=== PATIENT | female | born 1995 | race Caucasian/White ===

== ENCOUNTER 2024-09-05 20:29 | Emergency (ER) | payer OTHER, SELFPAY ==
[2024-09-05 20:46] VITALS: BP 116/66
--- NOTE | 2024-09-05 20:47 | ED.GENMED ---
ED Provider Triage
<Husam Conn PA-C - Last Filed: 09/05/24 20:47>
-
Patient seen by provider in Triage?: Seen in Triage
Attestation: A medical screening examination has been initiated by a qualified medical provider. Based on the assessment performed at this time, it has been determined that an emergent medical condition may exist and the patient has been informed
that further medical evaluation and possible additional diagnostic testing may be needed.
HPI: 28-year-old female with persistent nausea vomiting and diarrhea with sudden onset around 2 PM. No sick contacts or recent travel. Patient notes persistent vomiting with any attempted p.o. intake. Did not take any medications prior to
arrival. Labs ordered. Zofran ordered for some symptomatic relief.
GENERAL: Alert , in no apparent distress
EYE: No visual abnormalities.
NECK: Trachea midline
ENT: No visible abnormalities.
LUNGS: No acute respiratory distress
NEUROLOGICAL: Alert and oriented
SKIN: Skin intact. No visible changes.
MUSCULOSKELETAL: Moving extremities normally
PSYCH: Normal and appropriate interaction.
This is a medical evaluation conducted in person to initiate diagnostic evaluation and provide initial therapeutics. Please see further documentation by the treating clinician.
History of Present Illness
<Husam Conn PA-C - Last Filed: 09/05/24 20:47>
General
Chief Complaint: Abdominal Symptoms
Time Seen by Provider: 09/05/24 22:13
<Jack Oviedo PA-C - Last Filed: 09/05/24 23:23>
History of Present Illness
History of Present Illness:
28-year-old otherwise healthy female presents the emergency department for evaluation of acute onset of vomiting and diarrhea beginning earlier today. She was given Zofran in the triage area since that time is been able to tolerate p.o. fluids.
Reports generalized abdominal pain. Prior abdominal surgical history includes laparoscopy for endometriosis. No hematemesis or hematochezia. Multiple ill contacts at work with reported norovirus
Past History
<Husam Conn PA-C - Last Filed: 09/05/24 20:47>
Past History
ED Past Medical History: None
Social History
Personal: Single
Review of Systems
<Jack Oviedo PA-C - Last Filed: 09/05/24 23:23>
Review of Systems
Allergies reviewed?: Yes
All Other Systems: ROS reviewed and negative except as documented in HPI and ROS
Phy Exam
<Jack Oviedo PA-C - Last Filed: 09/05/24 23:23>
Physical Exam
Physical Exam:
GEN: Well appearing, NAD, WDWN
HEENT: Oral mucosa moist, no scleral icterus
Cardiac: Regular rate
Lung: No respiratory distress, no tachypnea
Abdomen: Soft, minimally tender to all 4 quadrants
MSK: No gross deformity or injuries
Skin: Good color, no pallor or jaundice, no rashes
Neuro: AO x3, moves all extremities freely
Psych: Calm, cooperative
Course
<Husam Conn PA-C - Last Filed: 09/05/24 20:47>
Orders/Labs/Results
Orders:
Orders
09/05/24 20:46
Ondansetron Orally Disint [Zofran Odt (Orally Disintegrating)] 4 mg PO NOW STA
Test Result ONCE
09/05/24 20:53
Ondansetron Orally Disint [Zofran Odt (Orally Disintegrating)] 4 mg .ROUTE .STK-MED ONE
09/05/24 21:20
Complete Blood Count/With Diff Urgent
Comprehensive Metabolic Panel Urgent
HCG, Serum Qualitative Screen Urgent
Lipase Urgent
09/05/24 22:31
Ondansetron Orally Disint [Zofran Odt (Orally Disintegrating)] 4 mg PO NOW STA
Abnormal Lab Results
09/05/24
21:20
WBC 13.8 H 10^3/uL
(4.8-10.8)
Absolute Neuts (auto) 12.8 H 10^3/uL
(1.4-6.5)
Absolute Lymphs (auto) 0.4 L 10^3/uL
(1.2-3.4)
Neutrophils % 92.8 H %
(42.2-75.2)
Lymphocytes % 3.0 L %
(20.5-51.1)
Glucose 116 H mg/dl
(70-99)
Total Protein 8.7 H g/dl
(6.3-8.2)
Albumin 5.3 H g/dl
(3.5-5.0)
09/05/24 21:20
09/05/24 21:20
Vital Signs
Initial and Last Documented VS:
Initial Vital Signs
Temp Pulse Resp BP Pulse Ox
98.2 F 114 26 116/66 98
09/05/24 20:46 09/05/24 20:46 09/05/24 20:46 09/05/24 20:46 09/05/24 20:46
Last Documented Vital Signs
Temp Pulse Resp BP Pulse Ox
98.2 F 88 16 113/75 99
09/05/24 20:46 09/05/24 22:39 09/05/24 22:39 09/05/24 22:39 09/05/24 22:39
<Jack Oviedo PA-C - Last Filed: 09/05/24 23:23>
Orders/Labs/Results
Orders:
Orders
09/05/24 20:46
Ondansetron Orally Disint [Zofran Odt (Orally Disintegrating)] 4 mg PO NOW STA
Test Result ONCE
09/05/24 20:53
Ondansetron Orally Disint [Zofran Odt (Orally Disintegrating)] 4 mg .ROUTE .STK-MED ONE
09/05/24 21:20
Complete Blood Count/With Diff Urgent
Comprehensive Metabolic Panel Urgent
HCG, Serum Qualitative Screen Urgent
Lipase Urgent
09/05/24 22:31
Ondansetron Orally Disint [Zofran Odt (Orally Disintegrating)] 4 mg PO NOW STA
Abnormal Lab Results
09/05/24
21:20
WBC 13.8 H 10^3/uL
(4.8-10.8)
Absolute Neuts (auto) 12.8 H 10^3/uL
(1.4-6.5)
Absolute Lymphs (auto) 0.4 L 10^3/uL
(1.2-3.4)
Neutrophils % 92.8 H %
(42.2-75.2)
Lymphocytes % 3.0 L %
(20.5-51.1)
Glucose 116 H mg/dl
(70-99)
Total Protein 8.7 H g/dl
(6.3-8.2)
Albumin 5.3 H g/dl
(3.5-5.0)
09/05/24 21:20
09/05/24 21:20
Vital Signs
Initial and Last Documented VS:
Initial Vital Signs
Temp Pulse Resp BP Pulse Ox
98.2 F 114 26 116/66 98
09/05/24 20:46 09/05/24 20:46 09/05/24 20:46 09/05/24 20:46 09/05/24 20:46
Last Documented Vital Signs
Temp Pulse Resp BP Pulse Ox
98.2 F 88 16 113/75 99
09/05/24 20:46 09/05/24 22:39 09/05/24 22:39 09/05/24 22:39 09/05/24 22:39
<Jack Oviedo PA-C - Last Filed: 09/05/24 23:23>
MDM/Problems Addressed
MDM/Problems Addressed:
Likely self-limited viral syndrome. Labs unremarkable, given Zofran with improvement and able to tolerate p.o. fluids. I did give her the option of receiving the fluids versus discharge for further supportive care and she opts for discharge at
this time which is reasonable given that she is stable. Discussed supportive care, provided with antiemetics
<Jack Oviedo PA-C - Last Filed: 09/05/24 23:23>
*Critical Care Note
Total Time (30-74mins, 75-104mins- exclusive of procedures): Not Applicable
ED Attending Note
<Husam Conn PA-C - Last Filed: 09/05/24 20:47>
-
Portions of this chart may have been created with voice recognition software.� Occasional wrong word or��sound alike� substitutions may have occurred due to the inherent limitations of voice recognition software.
Discharge Plan
Departure
Patient Disposition: Home (Routine Discharge)
Date of Disposition: 09/05/24
Time of Disposition: 22:31
Patient with high blood pressure during this ER visit?: No
Discharge Problem:
Gastroenteritis
Instructions: Nausea and Vomiting, Adult (DC)
Prescriptions:
New
ondansetron 4 mg tablet,disintegrating
4 mg PO TIDPRN PRN (Reason: nausea/vomiting) Qty: 10 0RF
No Action
escitalopram oxalate 10 MG tablet
10 mg PO DAILY
Spironolactone
10 mg PO DAILY
famotidine 20 MG tablet
20 mg PO BID Qty: 28 0RF
Rx Instructions:
Take 20 mg twice a day for 14 days
ascorbic acid (vitamin C) [Vitamin C] 500 MG tablet
1,000 mg PO BID Qty: 56 0RF
Rx Instructions:
Take 1,000 mg twice a day for 14 days
aspirin 81 MG tablet,chewable
81 mg PO DAILY Qty: 14 0RF
Rx Instructions:
Take 81 mg daily for 14 days
zinc sulfate 220 MG capsule
220 mg PO DAILY Qty: 14 0RF
Rx Instructions:
Take 220 mg daily for 14 days
cholecalciferol (vitamin D3) 1,000 UNITS tablet
2,000 units PO DAILY Qty: 28 0RF
Rx Instructions:
Take 2,000 units daily for 14 days
melatonin 5 MG tablet
5 mg PO HS Qty: 14 0RF
Rx Instructions:
Take 5 mg daily at bedtime for 14 days
Referrals:
Joan Ramirez PA-C [Family Provider] -
Stand Alone Forms: Return to Work
Interventions
Interventions:
*Risk Screen - Suicide Last Done: 09/05/24 20:46
*General Assessment Last Done: 09/05/24 21:43
*Neglect/Abuse Screening Last Done: 09/05/24 20:46
ED- Fall Risk Assessment Last Done: 09/05/24 21:43
*ED COVID-19 Vaccine History Last Done: 09/05/24 21:53
*Nursing Disposition Last Done: 09/05/24 22:39
[facility] Assessment Last Done: 09/05/24 21:43
Discharge Date and Time
Discharge Date/Time: 09/05/24 22:40
Print Language: [place]ET[place]
[2024-09-05] MEDS: ZOFRAN ODT (ORALLY DISINTEGRATING) 4 MG PO ×2 (20:58→22:35)
[2024-09-05 21:40] LABS: % Basophils 0.1 % (0-2); % Eosinophils 0.1 % (0-6); % Immature Granulocytes 0.3 % (0-0.5); % Monocytes 3.7 % (1.7-9.3); % Neutrophils 92.8 % (42.2-75.2); Absolute Lymphocytes 0.4 10^3/uL (1.2-3.4); Absolute Monocytes 0.5 10^3/uL (0.1-0.6); Absolute Neutrophils 12.8 10^3/uL (1.4-6.5); Hemoglobin 14.7 g/dL (12.0-16.0); Mean Corp Hgb Conc. 34.2 g/dL (33.0-37.0); Mean Corpuscular Hgb 28.8 pg (27.0-31.0); Mean Corpuscular Volume 84.3 fL (81.0-99.0); Mean Platelet Volume 9.8 fL (7.4-10.4); Nucleated Red Blood Cells % 0 %; Platelet Count 233 10^3/uL (130-400); Red Cell Dist. Width 12.9 % (11.5-14.5); White Blood Cell Count 13.8 10^3/uL (4.8-10.8)
[2024-09-05 21:46] LABS: HCG, Serum Qualitative Screen Negative
[2024-09-05 21:49] LABS: ALT (SGPT) 16 U/L (0-35); AST (SGOT) 25 U/L (14-36); Albumin 5.3 g/dl (3.5-5.0); Alkaline Phosphatase 64 U/L (38-126); Blood Urea Nitrogen 12 mg/dl (7-17); Carbon Dioxide 23 mmol/L (22-30); Chloride 101 mmol/L (98-107); Glucose 116 mg/dl (70-99); Lipase 46 U/L (23-300); Potassium 4.2 mmol/L (3.5-5.1); Sodium 138 mmol/L (135-145); Total Bilirubin 1.1 mg/dl (0.2-1.3); Total Protein 8.7 g/dl (6.3-8.2); eGFR > 60.00
[2024-09-05 22:39] VITALS: BP 113/75
== END 2024-09-05 22:40 | disposition home or self-care (01) ==
LOC: EMR 20:29
PROVIDERS: Physician Assistant Medical; EMERGENCY PHYSICIAN Student in an Organized Health Care Education/Training Program; FAMILY PHYSICIAN Physician Assistant Medical
DX: K52.9 Noninfective gastroenteritis and colitis, unspecified (principal)
CPT/HCPCS: 99283; 80053; 83690; 84703; 85025